=== PATIENT | female | born 1960 | race Caucasian/White ===

== ENCOUNTER 2018-01-29 12:58 | Outpatient (REF) | payer OTHER, SELFPAY ==
[2018-01-29 22:07] LABS: Hemoglobin A1C 5.7 % (4.5-6.2)
[2018-01-29 22:10] LABS: Anion Gap 10.8 mmol/L (3-11); BUN 24 mg/dL (7-18); CO2 23.2 mmol/L (21.0-32.0); CREATININE 0.84 mg/dL (0.55-1.02); Calcium 9.2 mg/dL (8.5-10.1); Chloride 105 mmol/L (98-107); Cholesterol 215 mg/dL (50-200); Glucose 93 mg/dL (70-100); HDL Cholesterol 46 mg/dL (40-60); LDL CHOLESTEROL 156 mg/dL (<100); Potassium 4.4 mmol/L (3.5-5.1); Sodium 139 mmol/L (136-145); Triglyceride 63 mg/dL (30-150)
[2018-02-02 10:17] LABS: TSH 3.55 uIU/mL (0.358-3.74)
== END 2018-01-29 13:18 ==
LOC: NCHCN 12:58
PROVIDERS: PCP Nurse Practitioner Family; Visit Provider Nurse Practitioner Family
DX: Z00.00 Encounter for general adult medical examination without abnormal findings (principal); E03.9 Hypothyroidism, unspecified; I10 Essential (primary) hypertension; E78.5 Hyperlipidemia, unspecified; F17.210 Nicotine dependence, cigarettes, uncomplicated; G56.00 Carpal tunnel syndrome, unspecified upper limb
CPT/HCPCS: 80048; 80061; 83721; 83036; 84443

== ENCOUNTER 2018-02-02 13:48 | Outpatient (REF) | payer OTHER, SELFPAY | END 2018-02-02 14:08 | LOC: NCHCN 13:48 | PROVIDERS: PCP Nurse Practitioner Family; Visit Provider Nurse Practitioner Family | DX: L02.92 Furuncle, unspecified (principal) | CPT/HCPCS: 87077; 87070; 87186; 87205 ==

== ENCOUNTER 2019-03-09 13:27 | Outpatient (REF) | payer OTHER, SELFPAY ==
[2019-03-09 21:16] LABS: Anion Gap 11.9 mmol/L (3-11); BUN 21 mg/dL (7-18); CO2 24.1 mmol/L (21.0-32.0); CREATININE 1.08 mg/dL (0.55-1.02); Calcium 9.2 mg/dL (8.5-10.1); Chloride 103 mmol/L (98-107); Estimated GFR 52.48 (mL/min/1.73m2); Glucose 92 mg/dL (74-106); Potassium 4.1 mmol/L (3.5-5.1); Sodium 139 mmol/L (136-145); TSH 9.11 uIU/mL (0.36-3.74)
== END 2019-03-09 13:47 ==
LOC: NCHCN 13:27
PROVIDERS: PCP Nurse Practitioner Family; Visit Provider Nurse Practitioner Family
DX: R73.09 Other abnormal glucose (principal); I10 Essential (primary) hypertension; E03.9 Hypothyroidism, unspecified
CPT/HCPCS: 80048; 83036; 84443

== ENCOUNTER 2019-12-08 22:37 | Outpatient (REF) | payer OTHER, SELFPAY ==
[2019-12-08 23:00] LABS: Hemoglobin A1C 5.7 % (<5.7)
[2019-12-08 23:07] LABS: Anion Gap 7.8 mmol/L (3-11); BUN 21 mg/dL (7-18); CO2 27.2 mmol/L (21.0-32.0); CREATININE 1.01 mg/dL (0.55-1.02); Calcium 8.8 mg/dL (8.5-10.1); Chloride 104 mmol/L (98-107); Glucose 89 mg/dL (74-106); Potassium 4.4 mmol/L (3.5-5.1); Sodium 139 mmol/L (136-145); TSH 3.86 uIU/mL (0.36-3.74)
== END 2019-12-08 22:57 ==
LOC: NCHCN 22:37
PROVIDERS: PCP Nurse Practitioner Family; Visit Provider Nurse Practitioner Family
DX: R73.03 Prediabetes (principal); I10 Essential (primary) hypertension; E03.9 Hypothyroidism, unspecified
CPT/HCPCS: 80048; 83036; 84443

== ENCOUNTER 2019-12-29 22:24 | Outpatient (REF) | payer OTHER, SELFPAY ==
[2019-12-29 22:16] LABS: Anion Gap 9.4 mmol/L (3-11); BUN 30 mg/dL (7-18); CO2 26.6 mmol/L (21.0-32.0); CREATININE 1.33 mg/dL (0.55-1.02); Calcium 8.8 mg/dL (8.5-10.1); Chloride 100 mmol/L (98-107); Estimated GFR 41.12 (mL/min/1.73m2); Glucose 84 mg/dL (74-106); Potassium 3.7 mmol/L (3.5-5.1); Sodium 136 mmol/L (136-145)
== END 2019-12-29 22:44 ==
LOC: NCHCN 22:24
PROVIDERS: PCP Nurse Practitioner Family; Visit Provider Nurse Practitioner Family
DX: I10 Essential (primary) hypertension (principal)
CPT/HCPCS: 80048

== ENCOUNTER 2020-01-25 22:40 | Outpatient (REF) | payer OTHER, SELFPAY ==
[2020-01-25 23:08] LABS: Anion Gap 10.8 mmol/L (3-11); BUN 16 mg/dL (7-18); CO2 24.2 mmol/L (21.0-32.0); CREATININE 1.18 mg/dL (0.55-1.02); Calcium 9.2 mg/dL (8.5-10.1); Chloride 99 mmol/L (98-107); Estimated GFR 47.21 (mL/min/1.73m2); Glucose 132 mg/dL (74-106); Potassium 3.9 mmol/L (3.5-5.1); Sodium 134 mmol/L (136-145)
== END 2020-01-25 23:00 ==
LOC: NCHCN 22:40
PROVIDERS: PCP Nurse Practitioner Family; Visit Provider Nurse Practitioner Family
DX: I10 Essential (primary) hypertension (principal); R94.4 Abnormal results of kidney function studies; E03.9 Hypothyroidism, unspecified; F17.210 Nicotine dependence, cigarettes, uncomplicated
CPT/HCPCS: 80048; 84443

== ENCOUNTER 2020-03-27 16:40 | Outpatient (REF) | payer OTHER, SELFPAY ==
[2020-03-29 12:46] LABS: COVID-19 RT-PCR UVMMC Result Negative (Negative)
== END 2020-03-27 17:00 ==
LOC: NCHCN 16:40
PROVIDERS: PCP Nurse Practitioner Family; Visit Provider Nurse Practitioner Community Health
DX: R05 Cough (principal)
CPT/HCPCS: U0003

== ENCOUNTER 2020-04-25 17:47 | Outpatient (REF) | payer OTHER, SELFPAY ==
[2020-04-25 14:17] LABS: Anion Gap 8.8 mmol/L (3-11); BUN 22 mg/dL (7-18); CO2 26.2 mmol/L (21.0-32.0); CREATININE 0.9 mg/dL (0.55-1.02); Calcium 9.2 mg/dL (8.5-10.1); Chloride 103 mmol/L (98-107); Glucose 91 mg/dL (74-106); Potassium 4.2 mmol/L (3.5-5.1); Sodium 138 mmol/L (136-145); TSH 3.25 uIU/mL (0.36-3.74)
== END 2020-04-25 17:48 | disposition home or self-care (01) ==
LOC: NCHCN 17:47
PROVIDERS: PCP Nurse Practitioner Family; Visit Provider Nurse Practitioner Family
DX: E03.9 Hypothyroidism, unspecified (principal); I10 Essential (primary) hypertension; R94.4 Abnormal results of kidney function studies; Z86.39 Personal history of other endocrine, nutritional and metabolic disease
CPT/HCPCS: 80048; 84443

== ENCOUNTER 2021-03-29 16:12 | Outpatient (REF) | payer OTHER, SELFPAY ==
[2021-03-29 13:51] LABS: HCT 39.8 % (36.0-46.0); HGB 13.4 g/dL (11.2-15.7); MCH 31.4 pg (27.0-33.0); MCHC 33.7 % (32.0-36.0); MCV 93.2 fL (80-95); MPV 11.5 fL (8.0-11.0); Platelet Count 238 10^3/uL (130-400); RBC 4.27 10^6/uL (3.93-5.22); RDW 13.1 % (11.7-14.6); RDW-SD 44.6 fL; WBC 7.24 10^3/uL (4.4-10.8)
[2021-03-29 14:06] LABS: Hemoglobin A1C 5.7 % (<5.7)
[2021-03-29 14:13] LABS: Anion Gap 7.7 mmol/L (3-11); BUN 18 mg/dL (7-18); CO2 28.3 mmol/L (21.0-32.0); Calculated LDL 165 mg/dL (<100); Chloride 101 mmol/L (98-107); Cholesterol 234 mg/dL (<200); Estimated GFR 56.95 (mL/min/1.73m2); Glucose 96 mg/dL (74-106); HDL Cholesterol 55 mg/dL (40-60); Sodium 137 mmol/L (136-145); Triglyceride 70 mg/dL (<150)
--- OUTSIDE RECORDS SUMMARY | 2021-03-29 16:15 | XMS_ITS | CCD ---
:1960 Author Care Team Providers Name Role Phone Aranza ARCE Attending Physician Unavailable Vital Signs Unknown or Not Available. Allergies Allergy Code Allergy Type Reaction Status TYLENOL 20230427 Drug allergy NAUSEA AND VOMITING Active Procedures Unknown or Not Available. History of Immunizations Unknown or Not Available. Problems Unknown or Not Available. Results [facility] COVID RHEONIX* - Collect Date/Juice e: 03/05/2021 11:52 Test Name Code Test Result Test Units Test Ref Range Tier- EXPOSURE N/A SARS COV2 RNA: 68353-7 NEGATIVE N/A REFERENCE RAN GE: NEGAT Active Medications Medication Code Dose Units Frequency Route Modification Start Date/Time Advil 200MG 652035 200 MILLIGRAMS NEEDED ORAL 019 Oral Tablet 23:07 Prescription Detail TAKE 200 MILLIGRAMS ORAL NEEDED Amitriptyline 50MG 673903 50 MILLIGRAMS DAILY ORAL Oral Tablet 23:07 Prescription Detail TAKE 50 MILLIGRAMS ORAL EDIN Y Levothyroxine 061549 112 MCG EVERY ORAL 09/05/2018 Sodium 112MCG Oral EVENING 23:07 Tablet Prescription Detail TAKE 112 MCG ORAL EVERY EVEN ING Losartan 597595 50 MILLIGRAMS EVERY ORAL 09/05/2018 Potassium 50MG EVENING 23:07 Oral Tablet Prescription Detail TAKE 50 MILLIGRAMS ORAL EVER Y EVENING Medications Administered During Visit Unknown or Not Available. Encounters Encounter Diagnosis Diagnosis Code Start Date CONTACT WITH AND SUSPECTED EXPOSURE TO COVID-19 [id number] 03/05/2021 Social History Smoking Status Code Start Date End Date Current every day smoker [id number] 02/25/1980 Patient Decision Aids Unknown or Not Available. Discharge Instructions You were admitted to [facility] on 03/05/2021 11:49 with a principal diagnosis of Contact with and (suspected ) exposure to COVID-19 You had the following tests done: [facility] COVID RHEONIX* You were discharged from [facility] on 03/05/2021 11:49 Should you have any questions prior to d ischarge, please contact a member of your healthcare team. If you have left the ho spital and have any questions, please contact your primary care physician. Chief Complaint and Reason For Visit Unknown or Not Available. Function Status Unknown or Not Available. Plan of Care Unknown or Not Available. Referral/Transition of Care Unknown or Not Available.
--- OUTSIDE RECORDS SUMMARY | 2021-03-29 16:15 | XMS_ITS | CCD ---
:1960 Author Care Team Providers Name Role Phone Aranza ARCE Attending Physician Unavailable Vital Signs Unknown or Not Available. Allergies Allergy Code Allergy Type Reaction Status TYLENOL 20230427 Drug allergy NAUSEA AND VOMITING Active Procedures Unknown or Not Available. History of Immunizations Unknown or Not Available. Problems Unknown or Not Available. Results [facility] COVID RHEONIX* - Collect Date/Juice e: 02/27/2021 16:19 Test Name Code Test Result Test Units Test Ref Range Tier- SYMPTOMS N/A SARS COV2 RNA: 41037-1 NEGATIVE N/A REFERENCE RAN GE: NEGAT Active Medications Medication Code Dose Units Frequency Route Modification Start Date/Time Advil 200MG 396258 200 MILLIGRAMS NEEDED ORAL 019 Oral Tablet 23:07 Prescription Detail TAKE 200 MILLIGRAMS ORAL NEEDED Amitriptyline 50MG 894173 50 MILLIGRAMS DAILY ORAL Oral Tablet 23:07 Prescription Detail TAKE 50 MILLIGRAMS ORAL EDIN Y Levothyroxine 223900 112 MCG EVERY ORAL 09/05/2018 Sodium 112MCG Oral EVENING 23:07 Tablet Prescription Detail TAKE 112 MCG ORAL EVERY EVEN ING Losartan 155825 50 MILLIGRAMS EVERY ORAL 09/05/2018 Potassium 50MG EVENING 23:07 Oral Tablet Prescription Detail TAKE 50 MILLIGRAMS ORAL EVER Y EVENING Medications Administered During Visit Unknown or Not Available. Encounters Encounter Diagnosis Diagnosis Code Start Date CONTACT WITH AND SUSPECTED EXPOSURE TO COVID-19 [id number] 02/27/2021 Social History Smoking Status Code Start Date End Date Current every day smoker [id number] 02/25/1980 Patient Decision Aids Unknown or Not Available. Discharge Instructions You were admitted to [facility] on 02/27/2021 07:31 with a principal diagnosis of Contact with and (suspected ) exposure to COVID-19 You had the following tests done: [facility] COVID RHEONIX* You were discharged from [facility] on 02/27/2021 07:31 Should you have any questions prior to [...]
--- OUTSIDE RECORDS SUMMARY | 2021-03-29 16:16 | XMS_ITS | CCD ---
:1960 Author Care Team Providers Name Role Phone Aranza ARCE Attending Physician Unavailable Vital Signs Unknown or Not Available. Allergies Allergy Code Allergy Type Reaction Status TYLENOL 20230427 Drug allergy NAUSEA AND VOMITING Active Procedures Unknown or Not Available. History of Immunizations Unknown or Not Available. Problems Unknown or Not Available. Results [facility] COVID RHEONIX* - Collect Date/Juice e: 02/06/2021 10:54 Test Name Code Test Result Test Units Test Ref Range SOURCE= Anterior nasal N/A Tier- EXPOSURE N/A SARS COV2 RNA: 61270-8 NEGATIVE N/A REFERENCE RAN GE: NEGAT Active Medications Medication Code Dose Units Frequency Route Modification Start Date/Time Advil 200MG 168739 200 MILLIGRAMS NEEDED ORAL 019 Oral Tablet 23:07 Prescription Detail TAKE 200 MILLIGRAMS ORAL NEEDED Amitriptyline 50MG 373357 50 MILLIGRAMS DAILY ORAL Oral Tablet 23:07 Prescription Detail TAKE 50 MILLIGRAMS ORAL EDIN Y Levothyroxine 916794 112 MCG EVERY ORAL 09/05/2018 Sodium 112MCG Oral EVENING 23:07 Tablet Prescription Detail TAKE 112 MCG ORAL EVERY EVEN ING Losartan 400560 50 MILLIGRAMS EVERY ORAL 09/05/2018 Potassium 50MG EVENING 23:07 Oral Tablet Prescription Detail TAKE 50 MILLIGRAMS ORAL EVER Y EVENING Medications Administered During Visit Unknown or Not Available. Encounters Encounter Diagnosis Diagnosis Code Start Date CONTACT WITH AND SUSPECTED EXPOSURE TO COVID-19 [id number] 02/06/2021 Social History Smoking Status Code Start Date End Date Current every day smoker [id number] 02/25/1980 Patient Decision Aids Unknown or Not Available. Discharge Instructions You were admitted to [facility] on 02/06/2021 11:18 with a principal diagnosis of Contact with and (suspected ) exposure to COVID-19 You had the following tests done: [facility] COVID RHEONIX* You were discharged from on 02/06/2021 11:18 Should you have any questions prior to [...]
== END 2021-03-29 16:13 | disposition home or self-care (01) ==
LOC: NCHCN 16:12
PROVIDERS: PCP Nurse Practitioner Family; Visit Provider Nurse Practitioner Family
DX: Z00.00 Encounter for general adult medical examination without abnormal findings (principal); I10 Essential (primary) hypertension; E78.5 Hyperlipidemia, unspecified; R73.03 Prediabetes; E03.9 Hypothyroidism, unspecified
CPT/HCPCS: 80048; 80061; 85027; 83036; 84443

== ENCOUNTER 2021-05-28 18:44 | Outpatient (REF) | payer OTHER, SELFPAY ==
[2021-05-28 17:47] LABS: ALT 33 U/L (14-59); AST 23 U/L (15-37); Albumin 3.9 g/dL (3.4-5.0); Alkaline Phosphatase 86 U/L (46-116); Anion Gap 11.7 mmol/L (3-11); BUN 22 mg/dL (7-18); Bilirubin, Total 0.3 mg/dL (0.2-1.0); CO2 26.3 mmol/L (21.0-32.0); CREATININE 0.8 mg/dL (0.55-1.02); Calcium 9.1 mg/dL (8.5-10.1); Calculated LDL 102 mg/dL (<100); Chloride 100 mmol/L (98-107); Cholesterol 176 mg/dL (<200); Glucose 86 mg/dL (74-106); HDL Cholesterol 62 mg/dL (40-60); Potassium 4.2 mmol/L (3.5-5.1); Sodium 138 mmol/L (136-145); Total Protein 7.3 g/dL (6.4-8.2); Triglyceride 63 mg/dL (<150)
== END 2021-05-28 18:45 | disposition home or self-care (01) ==
LOC: NCHCN 18:44
PROVIDERS: PCP Nurse Practitioner Family; Visit Provider Nurse Practitioner Family
DX: I25.10 Atherosclerotic heart disease of native coronary artery without angina pectoris (principal); E78.5 Hyperlipidemia, unspecified; F17.210 Nicotine dependence, cigarettes, uncomplicated
CPT/HCPCS: 80053; 80061

== ENCOUNTER 2021-08-07 15:10 | Outpatient (REF) | payer OTHER, SELFPAY ==
[2021-08-07 15:29] LABS: Anion Gap 6.8 mmol/L (3-11); BUN 20 mg/dL (7-18); CO2 27.2 mmol/L (21.0-32.0); CREATININE 0.8 mg/dL (0.55-1.02); Calcium 8.8 mg/dL (8.5-10.1); Chloride 98 mmol/L (98-107); Glucose 95 mg/dL (74-106); Potassium 4.2 mmol/L (3.5-5.1); Sodium 132 mmol/L (136-145)
== END 2021-08-07 15:11 | disposition home or self-care (01) ==
LOC: NCHCN 15:10
PROVIDERS: PCP Nurse Practitioner Family; Visit Provider Nurse Practitioner Family
DX: Z86.39 Personal history of other endocrine, nutritional and metabolic disease (principal)
CPT/HCPCS: 80048

== ENCOUNTER 2022-07-29 15:03 | Outpatient (REF) | payer OTHER, SELFPAY ==
[2022-07-29 15:42] LABS: HCT 40.7 % (36.0-46.0); HGB 13.6 g/dL (11.2-15.7); MCH 31.3 pg (27.0-33.0); MCHC 33.4 % (32.0-36.0); MCV 94 fL (80-95); MPV 11.4 fL (8.0-11.0); Platelet Count 228 10^3/uL (130-400); RBC 4.34 10^6/uL (3.93-5.22); RDW 14.4 % (11.7-14.6); RDW-SD 49.6 fL; WBC 8.46 10^3/uL (4.4-10.8)
[2022-07-29 16:07] LABS: Anion Gap 4.6 mmol/L (3-11); BUN 15 mg/dL (7-18); CO2 25.4 mmol/L (21.0-32.0); Chloride 103 mmol/L (98-107); Estimated GFR 64.49 (mL/min/1.73m2); Glucose 97 mg/dL (74-106); Sodium 133 mmol/L (136-145); TSH 3.78 uIU/mL (0.36-3.74)
[2022-07-31 09:58] LABS: Hepatitis C Ab w Rflx HCV PCR Negative (Negative)
[2022-07-31 10:24] LABS: HIV-1/2 Ag & Ab Screen Negative (Negative)
== END 2022-07-29 15:04 | disposition home or self-care (01) ==
LOC: NCHCN 15:03
PROVIDERS: PCP Nurse Practitioner Family; Visit Provider Nurse Practitioner Family
DX: Z00.00 Encounter for general adult medical examination without abnormal findings (principal); I10 Essential (primary) hypertension; R73.03 Prediabetes; Z11.4 Encounter for screening for human immunodeficiency virus [HIV]; Z11.59 Encounter for screening for other viral diseases
CPT/HCPCS: 80048; 85027; 86803; 87389; 84443

== ENCOUNTER 2024-05-17 16:11 | Outpatient (REF) | payer OTHER, SELFPAY ==
[2024-05-17 21:25] LABS: HCT 39.1 % (36.0-46.0); HGB 13.1 g/dL (11.2-15.7); MCH 30.8 pg (27.0-33.0); MCHC 33.5 % (32.0-36.0); MCV 92 fL (80-95); MPV 11.4 fL (8.0-11.0); Platelet Count 207 10^3/uL (130-400); RBC 4.25 10^6/uL (3.93-5.22); RDW 13.3 % (11.7-14.6); RDW-SD 45.3 fL; WBC 6.18 10^3/uL (4.4-10.8)
[2024-05-17 22:37] LABS: ALT 40 U/L (14-59); AST 46 U/L (15-37); Albumin 3.8 g/dL (3.4-5.0); Alkaline Phosphatase 101 U/L (46-116); Anion Gap 8.3 mmol/L (3-11); BUN 20 mg/dL (7-18); Bilirubin, Total 0.6 mg/dL (0.2-1.0); CO2 25.7 mmol/L (21.0-32.0); Calcium 9.6 mg/dL (8.5-10.1); Calculated LDL 100 mg/dL (<100); Chloride 106 mmol/L (98-107); Cholesterol 177 mg/dL (<200); Estimated GFR 64.09 (mL/min/1.73m2); Glucose 81 mg/dL (74-106); HDL Cholesterol 67 mg/dL (>or=50); Potassium 4.1 mmol/L (3.5-5.1); Sodium 140 mmol/L (136-145); TSH 3.32 uIU/mL (0.36-3.74); Total Protein 7.6 g/dL (6.4-8.2); Triglyceride 53 mg/dL (<150)
[2024-05-17 22:55] LABS: Hemoglobin A1C 5.7 % (<5.7)
== END 2024-05-17 16:12 | disposition home or self-care (01) ==
LOC: NCHCN 16:11
PROVIDERS: PCP Nurse Practitioner Family; Visit Provider Nurse Practitioner Family
DX: R73.03 Prediabetes (principal); I10 Essential (primary) hypertension; E03.9 Hypothyroidism, unspecified; E78.5 Hyperlipidemia, unspecified
CPT/HCPCS: 80053; 80061; 85027; 83036; 84443